=== PATIENT | female | born 1955 | race Caucasian/White ===

== ENCOUNTER → 2023-07-30 12:18 | Outpatient (BNVA) | payer MEDICARE, BC, SELFPAY | PROVIDERS: PCP Pediatrics; Visit Provider Emergency Medicine | DX: R68.89 Other general symptoms and signs (principal); J98.8 Other specified respiratory disorders; B97.89 Other viral agents as the cause of diseases classified elsewhere | CPT/HCPCS: 87400; 87426 ==